=== PATIENT | male | born 1950 | race Caucasian/White ===

== ENCOUNTER 2022-06-06 14:17 | Emergency (ER) | payer OTHER, SELFPAY ==
[2022-06-06 14:32] VITALS: BP 150/75; PULSE 82; RESP 14; TEMP 37.1; O2SAT 96; BMI 34.1
--- NOTE | 2022-06-06 14:38 | DI.RAD.S_ITS ---
PROCEDURE: XR CHEST 1V INDICATIONS: chest pain TECHNIQUE: One view of the chest was acquired. COMPARISON: None. FINDINGS: Surgical changes and devices: None. Lungs and pleura: Lungs are clear. No pleural effusions or pneumothorax. Mediastinum: Mediastinal contours appear normal. Heart size is normal. Bones and chest wall: No suspicious bony lesions. Overlying soft tissues appear unremarkable. IMPRESSION: No acute cardiopulmonary pathology. Dictated by: Ed Chu M.D. on 06/06/2022 at 14:53 Approved by: Ed Chu M.D. on 06/06/2022 at 14:53
[2022-06-06 14:52] LABS: Add Manual Diff / Slide Review NO; Basophils Absolute Auto 100 /uL (0-100); Basophils Percent Auto 0.8 % (0-2); Eosinophils Absolute Auto 300 /uL (0-450); Eosinophils Percent Auto 3.1 % (2-4); Hematocrit 47.3 % (41-53); Hemoglobin 15.8 g/dL (13.5-17.5); Lymphocytes Absolute Auto 1600 /uL (1100-4500); Lymphocytes Percent Auto 16.2 % (25-40); Mean Corpuscular HGB Conc 33.4 % (30-36); Mean Corpuscular Hemoglobin 29.4 PG (26-34); Monocytes Absolute Auto 900 /uL (0-900); Monocytes Percent Auto 9.6 % (3-14); Neutrophils Absolute Auto 6900 /uL (1500-7000); Neutrophils Percent Auto 70.3 % (50-75); Platelet Count 220 X10^3/uL (150-400); Red Blood Cell Count 5.37 X10^6/uL (4.5-5.9); Red Cell Distribution Width 14.3 % (11.6-14.8); White Blood Cell Count 9.8 X10^3/uL (4.5-11.0)
[2022-06-06 14:58] LABS: INR 1.1 (0.9-1.3); Prothrombin Time 12.8 SECONDS (10.1-12.7)
[2022-06-06 15:01] LABS: PTT Partial Thromboplastin Tim 29 SECONDS (26-36)
[2022-06-06 15:05] LABS: Alanine Aminotransferase 22 IU/L (<50); Albumin 4.1 g/dL (3.5-5.0); Albumin Globulin Ratio 1.4 (1.0-2.8); Alkaline Phosphatase 96 U/L (38-126); Aspartate Aminotransferase 26 IU/L (17-59); BUN Creatinine Ratio 22.3 (6-22); Bilirubin Total 0.4 mg/dL (0.2-1.3); Blood Urea Nitrogen 23 mg/dL (9-20); Calcium 8.5 mg/dL (8.4-10.2); Carbon Dioxide 22 mmol/L (22-32); Chloride 110 mmol/L (98-107); Creatine Kinase 143 U/L (55-170); Estimated Glomerular Filt Rate > 60 mL/min (>60); Glucose 97 mg/dL (80-110); Lipase 203 U/L (23-300); Potassium 4.1 mmol/L (3.4-5.1); Sodium 140 mmol/L (137-145); Total Protein 7.1 g/dL (6.3-8.2)
[2022-06-06 15:16] LABS: Troponin I < 0.012 ng/mL (0.01-0.034)
[2022-06-06 15:20] LABS: CKMB % Relative Index 1.6 % (1.5-5.0); Creatine Kinase MB 2.34 ng/mL (<2.37); HEMOLYSIS 36 (0-50)
[2022-06-06 16:02] VITALS: PULSE 86; O2SAT 96
[2022-06-06 16:30] VITALS: PULSE 79; RESP 13; O2SAT 96
--- NOTE | 2022-06-06 16:56 | ED_ITS ---
HPI - Chest Pain General Chief Complaint: Chest Pain Stated Complaint: sent by [facility] chest pain on & off T-30/achy Time Seen by Provider: 06/06/22 16:34 Source: patient Mode of arrival: Ambulatory Limitations: no limitations History of Present Illness HPI narrative: Patient is a 72-year-old male. Was sent over forearm the walk-in clinic for evaluation of chest discomfort. He states that several months ago over the holidays he has developed a cough. That has been somewhat persistent since then but he feels like that it has been improving. Over the past month he has had chest discomfort. Not associated with palpation or movement or breathing. It is not associated with a cough either. No fevers. He went to the walk-in clinic and they sent him here to the emergency department. Patient states that his discomfort mostly occurs in the morning and then resolves as the day goes on. He is never had any issues with reflux disease or stomach ulcer. He does have some issues with intermittent constipation. He has had a colonoscopy in the past with precancerous tumor removals in his scheduled for a colonoscopy later this month. Review of Systems Constitutional Constitutional: Reports system reviewed and no additional complaints, except as documented Cardiovascular Cardiovascular: Reports system reviewed and no additional complaints, except as documented Respiratory Respiratory: Reports system reviewed and no additional complaints, except as documented Gastrointestinal Gastrointestinal: Reports system reviewed and no additional complaints, except as documented Integumentary/Breasts Skin/Breast: Reports system reviewed and no additional complaints, except as documented Neurologic Neurologic: Reports system reviewed and no additional complaints, except as documented Hematologic/Lymphatic On Anticoagulants: No Patient History Social History Smoking Status: Never smoker Smoking Status: Never smoker alcohol intake frequency: 0-2 drinks per day Substance Use Type: does not use Exam Initial Vital Signs Initial Vital Signs: Vital Signs Temperature 98.8 F 06/06/22 14:32 Pulse Rate 82 06/06/22 14:32 Respiratory Rate 14 06/06/22 14:32 Blood Pressure 150/75 H 06/06/22 14:32 Pulse Oximetry 96 06/06/22 14:32 Oxygen Delivery Method Room Air 06/06/22 14:32 HENWY Head: normal to inspection and normocephalic Chest Chest: No crepitus and No tenderness Resp Effort & Inspection: normal respiratory effort Auscultation: clear to auscultation bilaterally Cardio Rate: regular rate Rhythm: regular rhythm GI Inspection: normal to inspection Skin General: no rashes or lesions noted Neuro General: patient alert and patient awake Speech: speech normal Extrem General: capillary refill normal Scores HEART Score Heart Score history: Slightly Suspicious Heart Score EKG: Normal Heart Score Age: > or = 65 years old Heart Score risk factors: No known risk factors Heart Score troponin: < or = to normal limit Heart Score Total: 2 Course Orders Ordered: ED Orders 06/06/22 14:38 XR chest 1V Stat EKG-12 Lead Stat 06/06/22 14:45 Complete Blood Count AUTO DIFF Stat Comprehensive Metabolic Panel Stat Lipase Stat Magnesium Stat PTT Partial Thromboplastin Jayme Stat Prothrombin Time INR Stat Troponin & CK Cardiac Panel Stat Discontinued Medications Aspirin (Aspirin 81 Mg Chew Tab) 324 mg PO NOW ONE Stop: 06/06/22 14:39 Vital Signs Vital signs: Vital Signs - 8 hr 06/06/22 14:32 06/06/22 16:02 06/06/22 16:30 Temperature 98.8 F Pulse Rate 82 86 79 Respiratory Rate 14 13 Blood Pressure 150/75 H Pulse Oximetry 96 96 96 Oxygen Delivery Method Room Air Room Air 06/06/22 16:57 06/06/22 16:57 06/06/22 17:00 Temperature Pulse Rate 81 80 Respiratory Rate 17 Blood Pressure 171/83 H Pulse Oximetry 97 97 Oxygen Delivery Method Room Air MDM - Chest Pain Lab Data Attestation: I reviewed the patient's lab results. 06/06/22 14:45 06/06/22 14:45 Labs: Lab Results 06/06/22 06/06/22 06/06/22 Range/Units 14:45 14:45 14:45 WBC 9.8 (4.5-11.0) X10^3/uL RBC 5.37 (4.5-5.9) X10^6/uL Hgb 15.8 (13.5-17.5) g/dL Hct 47.3 (41-53) % MCV 88.0 (80-100) fL MCH 29.4 (26-34) PG MCHC 33.4 (30-36) % RDW 14.3 (11.6-14.8) % Plt Count 220 (150-400) X10^3/uL Neut % (Auto) 70.3 (50-75) % Lymph % (Auto) 16.2 L (25-40) % [place] % (Auto) 9.6 (3-14) % Eos % (Auto) 3.1 (2-4) % Baso % (Auto) 0.8 (0-2) % Neut # (Auto) 6900 (4170-6329) /uL Lymph # (Auto) 1600 (6699-9642) /uL [place] # (Auto) 900 (0-900) /uL Eos # (Auto) 300 (0-450) /uL Baso # (Auto) 100 (0-100) /uL PT 12.8 H (10.1-12.7) SECONDS INR 1.1 (0.9-1.3) APTT 29 (26-36) SECONDS Sodium 140 (137-145) mmol/L Potassium 4.1 (3.4-5.1) mmol/L Chloride 110 H (98-107) mmol/L Carbon Dioxide 22 (22-32) mmol/L BUN 23 H (9-20) mg/dL Creatinine 1.03 (0.66-1.25) mg/dL Estimated GFR > 60 (>60) mL/min BUN/Creatinine Ratio 22.3 H (6-22) Glucose 97 (80-110) mg/dL Calcium 8.5 (8.4-10.2) mg/dL Magnesium 2.0 (1.6-2.3) mg/dL Total Bilirubin 0.4 (0.2-1.3) mg/dL AST 26 (17-59) IU/L ALT 22 (<50) IU/L Alkaline Phosphatase 96 (38-126) U/L Total Creatine Kinase 143 (55-170) U/L CK-MB (CK-2) 2.34 (<2.37) ng/mL CK-MB (CK-2) Rel Index 1.6 (1.5-5.0) % Troponin I < 0.012 (0.01-0.034) ng/mL Total Protein 7.1 (6.3-8.2) g/dL Albumin 4.1 (3.5-5.0) g/dL Globulin 3.0 (1.7-4.1) g/dL Albumin/Globulin Ratio 1.4 (1.0-2.8) Lipase 203 (23-300) U/L Imaging Data Chest x-ray: Radiologist's Impression: PROCEDURE:? XR CHEST 1V ? INDICATIONS:? chest pain ? TECHNIQUE:? One view of the chest was acquired.? ? COMPARISON:? None. ? FINDINGS:? ? Surgical changes and devices:? None.? ? Lungs and pleura:? Lungs are clear.? No pleural effusions or pneumothorax.? ? Mediastinum:? Mediastinal contours appear normal.? Heart size is normal.? ? Bones and chest wall:? No suspicious bony lesions.? Overlying soft tissues appear unremarkable.? ? IMPRESSION:? No acute cardiopulmonary pathology. ECG Data Interpretation: Sinus rhythm Ventricular rate 94 LVH Normal axis No ST T wave changes MDM Narrative Medical decision making narrative: Low risk heart score. EKG is unremarkable. Chest x-ray is unremarkable. Has had symptoms for the past month. I have a higher suspicion that this is GI related as he states the symptoms are worse in the morning and better as the day goes on. He also has had a chronic cough which could very well because of reflux as well. He is no specific diagnosis of this. The plan will be is to discharge patient home and have him follow-up with his primary provider to discuss further risk stratification. Will also start the patient on a proton pump inhibitor. He was given return precautions and follow-up instructions. He expressed understanding and agreement. Discharge Plan Departure Patient Disposition: Home Clinical Impression: Atypical chest pain Instructions: DI for Atypical Chest Pain Activity Restrictions/Additional Instructions: I do recommend that when you return home that you talk with your primary doctor about a referral for a stress test. Until then I recommend that you start on a class of medicines caught a proton pump inhibitor. Examples of these are Nexium, omeprazole, Prilosec, esomeprazole. You can purchase these [id number]. There 1 time a day medication. Return to the emergency department for any new or worsening symptoms. Referrals: Miscelldav,MD Salena [Primary Care Provider] - Stand Alone Forms: Patient Portal/API
[2022-06-06 16:57] VITALS: BP 171/83; PULSE 81; O2SAT 97
[2022-06-06 17:00] VITALS: PULSE 80; RESP 17; O2SAT 97
== END 2022-06-06 17:07 | disposition home or self-care (01) ==
PROVIDERS: Emergency Provider Emergency Medicine
DX: R07.89 Other chest pain (principal)
CPT/HCPCS: 36415; 71045; 80053; 82550; 82553; 83690; 83735; 84484; 85025; 85610; 85730; 93005; 93010; 99284